=== PATIENT | female | born 1975 | race Caucasian/White ===

== ENCOUNTER 2021-11-05 18:19 | Outpatient (CLI) | payer OTHER, SELFPAY ==
--- NOTE | 2021-11-05 18:30 | CRLHL7_ITS ---
For Patients: As a result of the Century Cures Act, medical imaging exams and procedure reports are released immediately into your electronic medical record. You may view this report before your referring provider. If you have questions, please contact your health care provider. BILATERAL DIGITAL SCREENING MAMMOGRAM WITH TOMOSYNTHESIS AND COMPUTER-AIDED DETECTION CLINICAL HISTORY: Routine screening exam. COMPARISON: 11/05/2020, 11/09/19, 09/29/2018. TECHNIQUE: Digital mammogram in CC and MLO projections including computer-aided detection (CAD). Tomosynthesis utilized. BREAST COMPOSITION: There are areas of scattered fibroglandular density. FINDINGS: RIGHT Breast: Nodular density laterally 10 cm from the nipple, probable lymph node. LEFT Breast: No suspicious findings. IMPRESSION: RIGHT breast asymmetry/mass. RECOMMENDATIONS: RIGHT breast ultrasound recommended. The [facility] will contact the patient for follow-up. BI-RADS Category 0: Incomplete: Need Additional Imaging Evaluation and/or Prior Mammograms for Comparison A lay language report of this examination will be provided to the patient. Dictated by Jean Crook MD @ 11/06/2021 9:04:59 AM jj/Dictated by: Jean Crook MD @ 11/06/2021 9:04:00 AM (Electronically Signed)
== END 2021-11-05 18:20 | disposition home or self-care (01) ==
LOC: MAMMO 18:20
DX: Z12.31 Encounter for screening mammogram for malignant neoplasm of breast (principal); N63.10 Unspecified lump in the right breast, unspecified quadrant
CPT/HCPCS: 77063; 77067

== ENCOUNTER 2021-11-08 10:04 | Outpatient (CLI) | payer OTHER, SELFPAY ==
--- NOTE | 2021-11-08 10:15 | CRLHL7_ITS ---
For Patients: As a result of the Century Cures Act, medical imaging exams and procedure reports are released immediately into your electronic medical record. You may view this report before your referring provider. If you have questions, please contact your health care provider. RIGHT BREAST ULTRASOUND CLINICAL HISTORY: RIGHT breast mass/asymmetry. COMPARISON: Mammogram 11/05/2021. TECHNIQUE: Real-time ultrasound imaging of RIGHT breast with imaging documentation. FINDINGS: Targeted RIGHT breast ultrasound performed in the area of concern 9 o`clock 10 cm from the nipple. In this location there is a simple anechoic simple cyst measuring 8 x 5 x 9 millimeters. IMPRESSION: Simple cyst 9 o`clock 10 cm from the nipple RIGHT breast measuring 9 millimeters. No evidence of malignancy. RECOMMENDATIONS: Annual BILATERAL screening mammography. Results and recommendations were discussed with the patient at the time of the exam. BI-RADS Category 2: Benign A lay language report of this examination will be provided to the patient. Dictated by Jean Crook MD @ 11/08/2021 10:39:21 AM jj/Dictated by: Jean Crook MD @ 11/08/2021 10:39:00 AM (Electronically Signed)
== END 2021-11-08 10:05 | disposition home or self-care (01) ==
LOC: US 10:05
PROVIDERS: Visit Provider Family Medicine
DX: N63.10 Unspecified lump in the right breast, unspecified quadrant (principal); R92.8 Other abnormal and inconclusive findings on diagnostic imaging of breast
CPT/HCPCS: 76642

== ENCOUNTER 2022-11-18 19:19 | Outpatient (CLI) | payer OTHER, SELFPAY ==
--- NOTE | 2022-11-18 19:30 | CRLHL7_ITS ---
For Patients: As a result of the Cures Act, medical imaging exams and procedure reports are released immediately into your electronic medical record. You may view this report before your referring provider. If you have questions, please contact your health care provider. BILATERAL SCREENING MAMMOGRAM WITH COMPUTER-AIDED DETECTION AND TOMOSYNTHESIS TECHNIQUE: CC and MLO views were obtained. These mammographic images have been obtained using full-field digital technique. These mammographic images were interpreted with the benefit of computer-aided detection. Breast Tomosynthesis was used in this interpretation. COMPARISON FILM: 11/05/21, 11/05/20, 11/09/19. FINDINGS: There are scattered areas of fibroglandular density IMPRESSION: There is no radiographic evidence for malignancy. ASSESSMENT: BI-RADS Category 1: Negative RECOMMENDATION: Routine screening mammogram in 1 year. A lay language report of this examination will be provided to the patient. Jean Crook M.D. Diagnostic Radiologist [email or web address] Transcribed: 3:05 [email or web address] stein/Dictated by: Jean Crook MD @ 11/19/2022 11:22:00 AM (Electronically Signed)
== END 2022-11-18 19:20 | disposition home or self-care (01) ==
DX: Z12.31 Encounter for screening mammogram for malignant neoplasm of breast (principal)
CPT/HCPCS: 77063; 77067

== ENCOUNTER 2024-04-15 12:50 | Outpatient (CLI) | payer OTHER, SELFPAY ==
--- NOTE | 2024-04-15 13:00 | CRLHL7_ITS ---
For Patients: As a result of the Century Cures Act, medical imaging exams and procedure reports are released immediately into your electronic medical record. You may view this report before your referring provider. If you have questions, please contact your health care provider. BILATERAL SCREENING MAMMOGRAM WITH COMPUTER-AIDED DETECTION AND TOMOSYNTHESIS TECHNIQUE: CC and MLO views were obtained. These mammographic images have been obtained using full-field digital technique. These mammographic images were interpreted with the benefit of computer-aided detection. Breast Tomosynthesis was used in this interpretation. COMPARISON FILM: 11/18/22, 11/05/21, 11/05/20. FINDINGS: There are scattered areas of fibroglandular density. IMPRESSION: There is no radiographic evidence for malignancy. ASSESSMENT: BI-RADS Category 2: Benign RECOMMENDATION: Routine screening mammogram in 1 year. A lay language report of this examination will be provided to the patient. Jean Crook M.D. Diagnostic Radiologist [email or web address] SP/Dictated by: Jean Crook MD @ 04/18/2024 10:51:00 AM (Electronically Signed)
== END 2024-04-15 12:51 | disposition home or self-care (01) ==
LOC: MAMMO 12:52
PROVIDERS: Visit Provider Student in an Organized Health Care Education/Training Program
DX: Z12.31 Encounter for screening mammogram for malignant neoplasm of breast (principal)
CPT/HCPCS: 77063; 77067

== ENCOUNTER 2024-06-23 08:36 | Outpatient (CLI) | payer OTHER, SELFPAY | END 2024-06-23 08:37 | disposition home or self-care (01) | PROVIDERS: Visit Provider Physician Assistant Medical | DX: R03.0 Elevated blood-pressure reading, without diagnosis of hypertension (principal); E66.01 Morbid (severe) obesity due to excess calories; N92.0 Excessive and frequent menstruation with regular cycle; M76.61 Achilles tendinitis, right leg; Z13.6 Encounter for screening for cardiovascular disorders; Z13.1 Encounter for screening for diabetes mellitus; Z13.29 Encounter for screening for other suspected endocrine disorder; Z11.3 Encounter for screening for infections with a predominantly sexual mode of transmission; Z11.51 Encounter for screening for human papillomavirus (HPV); Z13.9 Encounter for screening, unspecified | CPT/HCPCS: 80053; 80061; 82306; 82728; 83001; 84443; 84630; 86703; 86803; 87086 ==

== ENCOUNTER 2024-10-20 06:25 | Outpatient (CLI) | payer OTHER, SELFPAY ==
--- NOTE | 2024-10-20 07:33 | P.ANES_ITS ---
Anesthesia Charges Start Date/Time Anesthesia Start Date: 10/20/24 Anesthesia Start Time: 07:10 Stop Date/Time Anesthesia Stop Date: 10/20/24 Anesthesia Stop Time: 07:30 Coding CPT Codes CPT Codes: ANES LWR INTST SCR COLSC - [id number] ([id number]) QZ - UI DEVELOPER DESIGNER SVC W/O BOILER INSTALLER BY , P3 - PATIENT W/SEVERE SYS DISEASE
--- NOTE | 2024-10-20 07:33 | W.ANESCHARGE ---
Anesthesia Charges Start Date/Time Anesthesia Start Date: 10/20/24 Anesthesia Start Time: 07:10 Stop Date/Time Anesthesia Stop Date: 10/20/24 Anesthesia Stop Time: 07:30 Coding CPT Codes CPT Codes: ANES LWR INTST SCR COLSC - [id number] ([id number]) QZ - DIGITAL ASSOCIATE SVC W/O CLOUD AUTOMATION TESTER BY , P3 - PATIENT W/SEVERE SYS DISEASE
== END 2024-10-20 06:26 | disposition home or self-care (01) ==
LOC: OP CLINIC 06:25
PROVIDERS: PCP Physician Assistant Medical; Visit Provider Internal Medicine
DX: Z12.11 Encounter for screening for malignant neoplasm of colon (principal)
CPT/HCPCS: 00812; 45378; J2704

== ENCOUNTER 2024-11-03 16:03 | Outpatient (CLI) | payer OTHER, SELFPAY | END 2024-11-03 16:04 | disposition home or self-care (01) | PROVIDERS: PCP Physician Assistant Medical; Visit Provider Physician Assistant Medical | DX: A69.20 Lyme disease, unspecified (principal) | CPT/HCPCS: 80076; 86618; 87468; 87469; 87484; 87798 ==